=== PATIENT | female | born 1960 | race Caucasian/White ===

== ENCOUNTER 2016-07-06 20:58 | Emergency (ER) | payer BC ==
[2016-07-06] MEDS ORDERED: PRINIVIL20 M1 PO (21:13)
[2016-07-06] MEDS ORDERED: COMPETE1 EACH PO (21:13)
[2016-07-06] MEDS ORDERED: LEXAPRO10 M2 PO (21:13)
== END 2016-07-06 23:11 ==
LOC: EDMED 20:58
PROC: 2W3RXYZ Immobilization of Left Lower Leg using Other Device (ICD-10-PCS; principal; 2016-07-06)
DX: S89.92XA Unspecified injury of left lower leg, initial encounter (principal); I10 Essential (primary) hypertension; Z79.899 Other long term (current) drug therapy; W11.XXXA Fall on and from ladder, initial encounter